=== PATIENT | female | born 1985 | race Caucasian/White ===

== ENCOUNTER 2017-03-01 13:21 | Emergency (ER) | payer BC ==
--- NOTE | 2017-03-01 13:41 | EDM.PDOC ---
ED HPI GENERAL MEDICAL PROBLEM - General Chief Complaint: Bite:Animal, Insect Stated Complaint: DOG BITE Time Seen by Provider: 03/01/17 13:30 Source of Information: Reports: Patient History Limitations: Reports: No Limitations - History of Present Illness INITIAL COMMENTS - FREE TEXT/NARRATIVE: Was at home and her dog did bite her left thumb, there is a 3 mm superficial laceration to the medial side of the anterior portion of her left thumb. She also does have a 2 mm laceration on her fingernail of her left thumb. She came in just to make sure that she did not need stitches. She is up to date on her tetanus as she did have a tetanus shot in 2010. 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: Other (see below) (There is no treatment at home as patient came straight to the emergency room.) - Related Data Allergies Allergy/AdvReac Type Severity Reaction Status Date / Time amoxicillin Allergy Rash Verified 06/24/16 15:50 Home Meds: Home Meds buPROPion [Wellbutrin XL] 150 mg PO BEDTIME 06/24/16 [History] Past Medical History - Past Health History Medical/Surgical History: Denies Medical/Surgical History Psychiatric History: Reports: Anxiety, Depression, Other (See Below) Other Psychiatric History: cutter - Past Surgical History Female Surgical History: Reports: Section Social & Family History - Tobacco Use Smoking Status *Q: Unknown Ever Smoked - Recreational Drug Use Recreational Drug Use: No ED ROS GENERAL - Review of Systems Review Of Systems: ROS reveals no pertinent complaints other than HPI. Respiratory: Reports: No Symptoms Cardiovascular: Reports: No Symptoms Musculoskeletal: Reports: Other (She has a pain in the distal portion of her left thumb due to a dog bite.). Denies: Hand Pain, Joint Pain, Joint Swelling Skin: Reports: Other (On laceration on the medial anterior portion of her left thumb shows has a laceration across her left thumb nail.) Neurological: Reports: Other ED EXAM, GENERAL - Physical Exam Exam: See Below Exam Limited By: No Limitations General Appearance: Alert, No Apparent Distress Respiratory/Chest: Lungs Clear, Normal Breath Sounds Cardiovascular: Normal Peripheral Pulses, Regular Rate, Rhythm, Other (She does have less than 3 second capillary refill time of her left thumb. Radial pulses are 2+.) Peripheral Pulses: 2+: Radial (L), Radial (R) Extremities: Normal Inspection, Normal Range of Motion, Other (Her left thumb has no decreased range of motion or muscle weakness.) Neurological: Alert, Oriented, CN II-XII Intact, Other (Pain and sensation are intact in her left thumb.) Psychiatric: Normal Affect, Normal Mood Skin Exam: Warm, Wound/Incision, Other (Patient is a 3 mm laceration to the medial anterior portion of her distal left thumb. She also has a 2 mm laceration to her left thumb fingernail which I do not believe is all over through the nail.). No: Erythema, Increased Warmth Departure - Departure Time of Disposition: 14:02 Disposition: Home, Self-Care 01 Condition: Good Clinical Impression: Abrasion, Laceration - Discharge Information Instructions: Animal Bite, [id number] Forms: ED Department Discharge Additional Instructions: Patient is to watch for signs of infection as instructed in the emergency room. She may also use Tylenol for pain. She will also be given a Z-Yohannes for prophylactic infection, as she is allergic to amoxicillin. Patient may follow- up with primary care provider if symptoms worse or better.
[2017-03-01 13:43] VITALS: BP 141/85
[2017-03-01] MEDS ORDERED: Take Home: Azithromycin 250 MG, 2 Tab Pack PO ONE (13:48)
== END 2017-03-01 14:20 | disposition home or self-care (01) ==
LOC: VM.ED 13:21
DX: S61.012A Laceration without foreign body of left thumb without damage to nail, initial encounter (principal); Z88.1 Allergy status to other antibiotic agents; W54.0XXA Bitten by dog, initial encounter
CPT/HCPCS: 99283; A9270

== ENCOUNTER 2018-11-17 03:08 | Emergency (ER) | payer BC ==
[2018-11-17 03:13] VITALS: BP 146/98; PULSE 92
[2018-11-17] MEDS ORDERED: Diphtheria,Pertussis(Acell),Tetanus Vaccine 0.5 ML Syringe IM ONE (03:40)
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
== END 2018-11-17 04:23 | disposition home or self-care (01) ==
LOC: VM.ED 03:08
DX: S63.501A Unspecified sprain of right wrist, initial encounter (principal); S80.212A Abrasion, left knee, initial encounter; Z23 Encounter for immunization; V29.9XXA Motorcycle rider (driver) (passenger) injured in unspecified traffic accident, initial encounter
CPT/HCPCS: 73110-RT; 90471; 90715; 99283-25

== ENCOUNTER 2019-09-06 16:38 | Emergency (ER) | payer BC ==
[2019-09-06 16:51] VITALS: BP 138/77; PULSE 70
[2019-09-06] MEDS ORDERED: Sodium Chloride 0.9% 1,000 ML IV ONE (16:56)
[2019-09-06] MEDS ORDERED: Morphine 4 MG/ML Syringe IVPUSH ONE (16:56)
[2019-09-06] MEDS ORDERED: Ondansetron 8 MG in Sodium Chloride 0.9% 100 ML IV ONE (16:56)
[2019-09-06 17:29] LABS: ANION GAP 18.7 mmol/L (10-20); CHLORIDE,CL 102 mmol/L (98-107); SODIUM,NA 142 mmol/L (136-145)
[2019-09-06] MEDS ORDERED: Iopamidol 612 MG/ML 100 ML Bottle IVPUSH ONE (17:46)
--- NOTE | 2019-09-06 18:28 | CT ---
[id number] CT/CT Abdomen Pelvis W IV EXAM: CT Abdomen Pelvis W IV CLINICAL DATA: ABDOMINAL PAIN COMPARISON: NO PREVIOUS SIMILAR EXAM IS AVAILABLE. FINDINGS: The gallbladder is moderately distended The gallbladder wall is normal There is no free fluid. There is no evidence of appendicitis There is an IUD in the endometrial cavity There is minimal small bowel distention, likely an ileus The pelvis shows no mass, adenopathy, or fluid collection The liver and spleen show no focal abnormalities There is an occasional small renal cysts The aorta, adrenals, and uterus, and kidneys otherwise are overall unremarkable IMPRESSION: NO ACUTE PROCESS OVERALL MILD ILEUS Ruben Pena MD 09/06/19 0077 Thank you for allowing us to participate in the care of your patient.
--- NOTE | 2019-09-06 18:38 | EDM.PDOC ---
ED HPI GENERAL MEDICAL PROBLEM - General Chief Complaint: Back Pain or Injury Stated Complaint: PAIN IN ABDOMEN AND BACK Time Seen by Provider: 09/06/19 16:40 Source of Information: Reports: Patient History Limitations: Reports: No Limitations - History of Present Illness INITIAL COMMENTS - FREE TEXT/NARRATIVE: Pain began this AM in mid-abdomen and upper back Getting worse Some N/V No diarrhea No travel hx No fever No dysuria NO trauma No previous hx/o same NO cough No chest pain Pain does not radiate Onset: Today, Gradual Duration: Getting Worse Location: Reports: Abdomen, Back Quality: Reports: Throbbing Severity: Moderate Associated Symptoms: Reports: Nausea/Vomiting Upper Back Pain Score (Numeric/FACES): 7 - Related Data Allergies Allergy/AdvReac Type Severity Reaction Status Date / Time amoxicillin Allergy Rash Verified 09/06/19 16:53 Home Meds: Home Meds Escitalopram Oxalate 30 mg PO DAILY 09/06/19 [History] Past Medical History - Past Health History Medical/Surgical History: Denies Medical/Surgical History Gastrointestinal History: Reports: Irritable Bowel Syndrome Psychiatric History: Reports: Anxiety, Depression, Other (See Below) Other Psychiatric History: cutter - Past Surgical History HEENT Surgical History: Reports: Adenoidectomy, Tonsillectomy Female Surgical History: Reports: Section Social & Family History - Tobacco Use Smoking Status *Q: Never Smoker - Caffeine Use Caffeine Use: Reports: None ED ROS GENERAL - Review of Systems Review Of Systems: See Below Constitutional: Reports: No Symptoms HEENT: Reports: No Symptoms Respiratory: Reports: No Symptoms Cardiovascular: Reports: No Symptoms GI/Abdominal: Reports: Abdominal Pain, Nausea, Vomiting Musculoskeletal: Reports: Back Pain ED EXAM, GI/ABD - Physical Exam Exam: See Below Exam Limited By: No Limitations General Appearance: Moderate Distress Throat/Mouth: Normal Oropharynx Neck: Supple Respiratory/Chest: Lungs Clear Cardiovascular: Regular Rate, Rhythm GI/Abdominal Exam: Soft, Tender, Other (Mildly tender No rebound No guarding) Back Exam: Normal Inspection Extremities: Normal Inspection Course - Vital Signs Last Recorded V/S: Last Vital Signs Temp 98.1 F 09/06/19 16:42 Pulse 70 09/06/19 16:42 Resp 20 09/06/19 16:42 BP 138/77 09/06/19 16:42 Pulse Ox 97 04/27/20 16:42 - Orders/Labs/Meds Orders: Active Orders 24 hr Category Date Time Status HCG QUALITATIVE,URINE [URCHEM] Stat Lab 09/06/19 16:55 Ordered UA RFX EMELY AND CULT IF INDIC [URIN] Stat Lab 09/06/19 16:54 Ordered Labs: Laboratory Tests 09/06/19 09/06/19 Range/Units 17:03 17:03 WBC 15.1 H (4.0-10.0) x10^3/uL RBC 4.95 (4.00-5.50) x10^6/uL Hgb 14.3 D (12.0-16.0) g/dL Hct 40.1 (33.0-47.0) % MCV 81.0 (78.0-93.0) fL MCH 28.9 (26.0-32.0) pg MCHC 35.7 (32.0-36.0) g/dL RDW Coeff of Kylie 13.9 (10.0-15.0) % Plt Count 269 (130-400) x10^3/uL Neut % (Auto) 75.7 (50.0-80.0) % Lymph % (Auto) 18.2 L (25.0-50.0) % [place] % (Auto) 4.9 (2.0-11.0) % Eos % (Auto) 0.9 (0.0-4.0) % Baso % (Auto) 0.3 (0.2-1.2) % Sodium 142 (136-145) mmol/L Potassium 3.7 (3.5-5.1) mmol/L Chloride 102 (98-107) mmol/L Carbon Dioxide 25 (21-32) mmol/L Anion Gap 18.7 (10-20) mmol/L BUN 10 (7-18) mg/dL Creatinine 0.9 (0.55-1.02) mg/dL Est Cr Clr Drug Dosing TNP Estimated GFR (MDRD) > 60 Glucose 115 H (74-106) mg/dL Calcium 9.2 (8.5-10.1) mg/dL Corrected Calcium 9.04 (8.5-10.1) mg/dL Total Bilirubin 0.5 (0.2-1.0) mg/dL AST 20 (15-37) U/L ALT 47 (14-59) U/L Alkaline Phosphatase 84 (46-116) U/L Total Protein 7.9 (6.4-8.2) g/dL Albumin 4.2 (3.4-5.0) g/dL Globulin 3.7 Albumin/Globulin Ratio 1.14 Amylase 121 H (25-115) U/L Lipase 143 (73-393) U/L Meds: Medications Discontinued Medications Generic Name Dose Route Start Last Admin Trade Name Freq PRN Reason Stop Dose Admin Ondansetron HCl 8 mg/ Sodium 104 mls @ 400 mls/hr 09/06/19 16:56 09/06/19 17: 08 Chloride IV 09/06/19 17:11 400 mls/hr ONETIME ONE Administration Sodium Chloride 1,000 mls @ 999 mls/hr 09/06/19 16:56 09/06/19 17:04 Normal Saline IV 09/06/19 17:56 999 mls/hr ONETIME ONE Administration Iopamidol 100 ml 09/06/19 17:46 09/06/19 18:05 Isovue-300 (61%) IVPUSH 09/06/19 17:47 100 ml ONETIME ONE Administration Morphine Sulfate 4 mg 09/06/19 16:56 09/06/19 17:14 Morphine IVPUSH 09/06/19 16:57 4 mg ONETIME ONE Administration - Re-Assessments/Exams Free Text/Narrative Re-Assessment/Exam: 09/06/19 18:[address] report No acute findings on CT Pt given IVF, 4 mg IV Zofran and 4 mg IV Morphine in ER with much improved symptoms Departure - Departure Time of Disposition: 18:40 Disposition: Home, Self-Care 01 Clinical Impression: Abdominal pain Qualifiers: Abdominal location: generalized Qualified Code(s): R10.84 - Generalized abdominal pain - Discharge Information *PRESCRIPTION DRUG MONITORING PROGRAM REVIEWED*: Not Applicable *COPY OF PRESCRIPTION DRUG MONITORING REPORT IN PATIENT KEN: Not Applicable Instructions: Abdominal Pain, Adult, [id number] Referrals: Lakesha De Leon DO [Primary Care Provider] - Additional Instructions: [place] diet To ER if worse Follow up in clinic Sepsis Event Note - Evaluation Sepsis Screening Result: No Definite Risk - Focused Exam Vital Signs: Vital Signs Temp Pulse Resp BP Pulse Ox 09/06/19 16:42 98.1 F 70 20 138/77 97 Date Exam was Performed: 09/06/19 Time Exam was Performed: 18:32 - My Orders Last 24 Hours: My Active Orders 09/06/19 16:54 UA RFX EMELY AND CULT IF INDIC [URIN] Stat 09/06/19 16:55 HCG QUALITATIVE,URINE [URCHEM] Stat - Assessment/Plan Last 24 Hours: My Active Orders 09/06/19 16:54 UA RFX EMELY AND CULT IF INDIC [URIN] Stat 09/06/19 16:55 HCG QUALITATIVE,URINE [URCHEM] Stat
== END 2019-09-06 18:48 | disposition home or self-care (01) ==
LOC: VM.ED 16:38
DX: R10.84 Generalized abdominal pain (principal); F41.9 Anxiety disorder, unspecified; F32.9 Major depressive disorder, single episode, unspecified; Z88.1 Allergy status to other antibiotic agents; Z79.899 Other long term (current) drug therapy
CPT/HCPCS: 74177; 80053; 82150; 83690; 85025; 96361; 96374; 96375; 99284; J2270; J2405; J7030; J7050; Q9967

== ENCOUNTER 2023-02-28 20:09 | Emergency (ER) | payer BC ==
[2023-02-28 20:30] LABS: BASOPHILS ABSOLUTE AUTO 0.1 x10^3/uL (0.0-0.2); BASOPHILS PERCENT AUTO 0.5 % (0.2-1.2); EOSINOPHILS ABSOLUTE AUTO 0.3 x10^3/uL (0.0-0.5); EOSINOPHILS PERCENT AUTO 2.7 % (0.0-4.0); HEMATOCRIT 37.9 % (33.0-47.0); IMMATURE GRAN ABSOLUTE AUTO 0.02 x10^3/uL (0.00-0.07); LYMPHOCYTES ABSOLUTE AUTO 3.4 x10^3/uL (1.0-4.8); LYMPHOCYTES PERCENT AUTO 32.4 % (25.0-50.0); MEAN CORPUSCULAR HEMOGLOBIN 28.4 pg (26.0-32.0); MEAN CORPUSCULAR HGB CONC 34.3 g/dL (32.0-36.0); MEAN CORPUSCULAR VOLUME 82.9 fL (78.0-93.0); MONOCYTES ABSOLUTE AUTO 0.6 x10^3/uL (0.0-0.8); MONOCYTES PERCENT AUTO 5.7 % (2.0-11.0); NEUTROPHILS ABSOLUTE AUTO 6.2 x10^3/uL (1.8-7.7); NEUTROPHILS PERCENT AUTO 58.5 % (50.0-80.0); PLATELET COUNT,PLT 240 x10^3/uL (130-400); RED BLOOD CELL COUNT 4.57 x10^6/uL (4.00-5.50); WHITE BLOOD CELL COUNT,WBC 10.6 x10^3/uL (4.0-10.0)
[2023-02-28 20:49] LABS: A/G RATIO 0.95; ALANINE AMINOTRANSFERASE,ALT 71 U/L (14-59); ALBUMIN 3.5 g/dL (3.4-5.0); ALKALINE PHOSPHATASE 99 U/L (46-116); ASPARTATE AMNIOTRANSFERASE,AST 42 U/L (15-37); BILIRUBIN TOTAL 0.2 mg/dL (0.2-1.0); BLOOD UREA NITROGEN,BUN 14 mg/dL (7-18); C-REACTIVE PROTEIN 0.91 mg/dL (<=0.30); CARBON DIOXIDE,CO2 29 mmol/L (21-32); CHLORIDE,CL 103 mmol/L (98-107); CREATININE 0.8 mg/dL (0.55-1.02); GLUCOSE RANDOM 143 mg/dL (70-99); POTASSIUM,K 3.6 mmol/L (3.5-5.1); PROTEIN TOTAL,TP 7.2 g/dL (6.4-8.2); SODIUM,NA 142 mmol/L (136-145)
[2023-02-28 20:50] LABS: ANION GAP 13.6 mmol/L (5-15); ESTIMATED GFR 95 mL/min (>=60)
[2023-03-01 00:08] VITALS: BP 136/67; PULSE 95
== END 2023-02-28 21:22 | disposition home or self-care (01) ==
LOC: VM.ED 20:09
DX: R07.9 Chest pain, unspecified (principal); Z87.891 Personal history of nicotine dependence; Z79.899 Other long term (current) drug therapy; Z88.1 Allergy status to other antibiotic agents
CPT/HCPCS: 36415; 71046; 80053; 84484; 85025; 86140; 93005; 99285